=== PATIENT | male | born 1955 | race Caucasian/White ===

== ENCOUNTER 2023-12-04 06:47 | Day surgery (SDC) | payer BC, MEDICARE ==
[~2023-12-04 06:47] MED LIST: Sodium Chloride 0.9% 10 ML Syringe FLUSH PRN
[2023-12-04] MEDS ORDERED: Lidocaine 2% 100 MG/5 ML Syringe IVPUSH ONE (06:48)
[2023-12-04] MEDS ORDERED: Propofol 200 MG/20 ML SDV IV ONE (06:48)
[2023-12-04] MEDS ORDERED: Glycopyrrolate 0.2 MG/ML 5 ML MDV IV ONE (06:48)
[2023-12-04] MEDS: Lactated Ringers 1,000 ML IV SCH (07:40)
== END 2023-12-04 10:22 | disposition home or self-care (01) ==
LOC: FB.SDS 06:47
PROVIDERS: ATTEND Surgery
DX: Z12.11 Encounter for screening for malignant neoplasm of colon (principal); D12.2 Benign neoplasm of ascending colon; D12.6 Benign neoplasm of colon, unspecified; D12.8 Benign neoplasm of rectum; K57.30 Diverticulosis of large intestine without perforation or abscess without bleeding
CPT/HCPCS: 00811; 88305; J1596; J2704; J7120